=== PATIENT | female | born 1965 | race Caucasian/White ===

== ENCOUNTER 2020-12-15 05:41 | Day surgery (SDC) | payer BC ==
[2020-12-15] VITALS (8 sets, daily range): BP systolic 114–141; BP diastolic 62–86
[~2020-12-15] VITALS: Ht 172.7 cm; Wt 111.9 kg
[~2020-12-15 05:41] MED LIST: AMLO2.5T2 PO; DOCUMENT DATE & TIME OF BETA-BLOCKER PO ONE; METF-900 PO; METO-411 PO; OLME40TA13 PO; famotidine 20mg tablet PO ONE; ringers solution, lacted 1,000 ML IV SCH
[2020-12-15] MEDS ORDERED: cefazolin/dext.iso 2gm/100ml 100 ML IV ONE (06:20)
[2020-12-15 06:27] LABS: CLARITY,URINE CLEAR (Clear); COLOR,URINE YELLOW (Yellow); GLUCOSE, URINE NEGATIVE (Neg); KETONES,URINE NEGATIVE (Neg); LEUKOCYTE ESTERASE ,URINE TRACE (Neg); NITRITES, URINE NEGATIVE (Neg); OCCULT BLOOD,URINE NEGATIVE (Neg); PROTEIN,URINE NEGATIVE (Neg); UROBILINOGEN,URINE 0.2 E.U/dL (0.2-1.0)
[2020-12-15 06:28] LABS: UA COLLECTION TYPE CLN CATCH MIDSTREAM
[2020-12-15 06:34] LABS: BACTERIA,URINE 1+ /HPF (Neg); MUCUS STRANDS NONE SEEN /LPF (Neg); RBC,URINE 0-2 /HPF (0-2); SQUAMOUS EPITHELIAL CELL,UR MODERATE /LPF (FEW); WBC,URINE 0-4 /HPF (0-4)
[2020-12-15 06:49] LABS: ALBUMIN/GLOBULIN RATIO 1.2 (1.1-1.5); ALKALINE PHOSPHATASE 65 IU/L (46-116); BLOOD UREA NITROGEN 14 MG/DL (7-18); BUN/CREATININE RATIO 16.1 (6.6-38.0); CALCIUM 8.6 MG/DL (8.5-10.1); CHLORIDE 106 MMOL/L (99-107); CREATININE 0.87 MG/DL (0.40-0.90); PRE OP ALT 59 U/L (30-65); PRE OP ANION GAP 10 (8-16); PRE OP AST 31 U/L (10-37); PRE OP BILIRUB, TOTAL 0.4 MG/DL (0.0-1.0); PRE OP GLUCOSE 141 MG/DL (70-104); PRE OP POTASSIUM 4.2 MMOL/L (3.4-5.1); PRE OP SODIUM 141 MMOL/L (135-145); TOTAL CARBON DIOXIDE 24.7 MMOL/L (24-32); TOTAL PROTEIN 7.4 G/DL (6.4-8.2); eGFR 67 ML/MIN
[2020-12-15 06:54] LABS: BASOPHILS # (AUTO) 0.1 X10'3 (0-0.2); BASOPHILS % (AUTO) 1.3 % (0-1); EOSINOPHILS # (AUTO) 0.7 X10'3 (0-0.9); EOSINOPHILS % (AUTO) 8.9 % (0-6); LYMPHOCYTES # (AUTO) 2.1 X10'3 (1.1-4.8); LYMPHOCYTES % (AUTO) 26.4 % (21-51); MEAN CORPUSCULAR HEMOGLOBIN 31.1 PG (27.0-31.0); MEAN CORPUSCULAR HGB CONC 33.9 g/dL (33.0-36.5); MEAN CORPUSCULAR VOLUME 91.7 FL (78-98); MEAN PLATELET VOLUME 8.1 FL (7.4-10.4); MONOCYTES # (AUTO) 0.8 X10'3 (0-0.9); MONOCYTES % (AUTO) 10.3 % (2-12); NEUTROPHILS # (AUTO) 4.3 X10'3 (1.8-7.7); NEUTROPHILS % (AUTO) 53.1 % (42-75); PRE OP HEMATOCRIT 41.4 % (35.0-45.0); PRE OP PLATELET COUNT 224 X10'3 (140-440); RED BLOOD COUNT 4.51 X10'6 (4.20-5.60); RED CELL DISTRIBUTION WIDTH 13.3 % (11.5-14.5)
[2020-12-15] MEDS ORDERED: sevoflurane 250ml liquid IH ONE (07:08)
[2020-12-15] MEDS ORDERED: ePHEDrine 50MG/ML INJ. ONE ×2 (07:08→07:43)
[2020-12-15] MEDS ORDERED: fentaNYL/PF 50MCG/1 ML 2ML syringe ONE (07:13)
[2020-12-15] MEDS ORDERED: midazolam 1 mg/ML 2ml injection ONE (07:15)
[2020-12-15] MEDS ORDERED: LEVO100T9 PO (07:22)
[2020-12-15] MEDS ORDERED: ROPIVAcaine 0.5% (5mg/ml) 30ml vial ONE (07:43)
[2020-12-15] MEDS ORDERED: LIDOcaine 2% (20mg/ml) 5ml vial ONE (07:43)
[2020-12-15] MEDS ORDERED: propofol inj 20 ML IV ONE (07:43)
[2020-12-15] MEDS ORDERED: 0.9 % SODIUM CHLORIDE 10 ML VIAL ONE ×3 (07:43)
[2020-12-15] MEDS ORDERED: bacitracin 15gm ointment TP ONE (08:06)
[2020-12-15] MEDS ORDERED: morphine 10mg/ml inj. ONE (08:13)
[2020-12-15] MEDS ORDERED: hydrALAZINE 20mg/ml inj. IV PRN (08:15)
[2020-12-15] MEDS ORDERED: labetalol 20mg/4ml (5mg/ml) syringe IV PRN (08:15)
[2020-12-15] MEDS ORDERED: ROPIVAcaine 0.2%/PF PUMP/bolus 545 ML POPLITEAL SCH (08:15)
[2020-12-15] MEDS ORDERED: morphine 2 MG/ML inj. syringe IV PRN (08:15)
[2020-12-15] MEDS ORDERED: ROPIVAcaine 0.2% (10 MG/5 ML) BOLUS INJECTION POPLITEAL PRN (08:15)
[2020-12-15] MEDS ORDERED: proCHLORperazine 10 MG/2 ml inj IV PRN (08:15)
[2020-12-15] MEDS ORDERED: morphine 4 MG/ML inj SYRINge IV PRN (08:15)
[2020-12-15] MEDS ORDERED: ondansetron/PF 4mg/2ml inj IV PRN (08:15)
[2020-12-15] MEDS ORDERED: meperidine/PF 25mg/ml syringe IV PRN ×3 (08:15)
[2020-12-15] MEDS ORDERED: ringers solution, lacted 1,000 ML IV SCH (08:15)
[2020-12-15] MEDS ORDERED: ondansetron/PF 4mg/2ml inj ONE (08:17)
[2020-12-15] MEDS ORDERED: dexamethasone sod phosphate 4mg/ml inj. ONE (08:18)
[2020-12-15] MEDS ORDERED: acetaminophen 1,000mg/100ml IV 100 ML IV ONE (08:19)
[2020-12-15] MEDS ORDERED: ceFAZolin 1000mg inj ONE (11:03)
--- NOTE | 2020-12-15 11:40 | NUR ---
Received from OR via MIN , accompanied by Anesthesiologist MARCIAL and report given by Anesthesiolgist. PATIENT WITH 16G PIV IN RIGHT HAND RUNNING LR AT 100. DENIES PAIN. DECREASED SENSATION TO TOES AT THIS TIME. DENIES PAIN. + CAP REFILL TO TOES, ALL PWD, 10 LPM O2 WITH 100% SATURATIONS. Addendum: 12/15/20 at 1153 by Gio Adams RN, RN Amended: Links added.
[2020-12-15] MEDS ORDERED: insulin regular, human 10 units/0.1 ml syringe SQ ONE (11:45)
--- NOTE | 2020-12-15 12:50 | NUR ---
ALL DISCHARGE CRITERIA HAS BEEN MET. VSS, PAIN AT A TOLERABLE LEVEL, VOIDING AND ABLE TO SAFELY AMBULATE AND TRANSFER SELF. IV TAKEN OUT WITHOUT ANY COMPLICATIONS. ALL DISCHARGE INSTRUCTIONS COVERED WITH PATIENT AND ALL QUESTIONS ANSWERED. PATIENT TAKEN OUT VIA WHEELCHAIR TO PERSONAL VEHICLE WHERE FAMILY/FRIEND DROVE PATIENT HOME. Addendum: 12/15/20 at 1326 by Gio Adams RN, RN Amended: Links added.
== END 2020-12-15 12:50 | disposition home or self-care (01) ==
LOC: PAS 05:41
PROVIDERS: ATTEND Podiatrist Foot & Ankle Surgery
DX: M19.072 Primary osteoarthritis, left ankle and foot (principal); M21.072 Valgus deformity, not elsewhere classified, left ankle; M77.52 Other enthesopathy of left foot and ankle; M79.672 Pain in left foot; I10 Essential (primary) hypertension; M19.071 Primary osteoarthritis, right ankle and foot; G89.18 Other acute postprocedural pain; E66.9 Obesity, unspecified; Z68.37 Body mass index [BMI] 37.0-37.9, adult; Z98.51 Tubal ligation status; Z98.890 Other specified postprocedural states; Z87.891 Personal history of nicotine dependence; Z88.2 Allergy status to sulfonamides; Z79.899 Other long term (current) drug therapy; Z72.89 Other problems related to lifestyle
CPT/HCPCS: 20900; 28122; 28305; 28715; 36415; 64446; 64447; 73630; 76000; 76937; 76942; 80053; 81001; 82948; 85025; 87088; 93005; A6223; C1713; J0131; J0690; J1100; J1815; J2001; J2250; J2270; J2405; J2704; J2795; J3010; J3370; J7120; A4618; A6253; A6449; A7000; C1762

== ENCOUNTER 2022-11-22 09:06 | Outpatient (CLI) | payer BC ==
[~2022-11-22 09:06] MED LIST changes: -DOCUMENT DATE & TIME OF BETA-BLOCKER PO ONE; +LEVO100T9 PO; -OLME40TA13 PO; +OLME40TA70 PO; -famotidine 20mg tablet PO ONE; -ringers solution, lacted 1,000 ML IV SCH
== END 2022-11-22 23:59 | disposition home or self-care (01) ==
LOC: RAD 09:06
PROVIDERS: ATTEND Nurse Practitioner Primary Care
DX: Z01.810 Encounter for preprocedural cardiovascular examination (principal)
CPT/HCPCS: 93005

== ENCOUNTER → 2023-08-22 | Outpatient (CLI) | payer BC, MEDICARE | END | disposition home or self-care (01) | LOC: RAD 14:17 | PROVIDERS: ATTEND Nurse Practitioner Primary Care | DX: Z01.810 Encounter for preprocedural cardiovascular examination (principal) | CPT/HCPCS: 93005 ==

== ENCOUNTER 2024-04-09 15:07 | Outpatient (CLI) | payer MEDICARE, BC | END 2024-04-09 23:59 | disposition home or self-care (01) | LOC: RAD 15:07 | PROVIDERS: ATTEND Nurse Practitioner Primary Care | DX: Z01.810 Encounter for preprocedural cardiovascular examination (principal) | CPT/HCPCS: 93005 ==